=== PATIENT | female | born 1960 ===

== ENCOUNTER 2025-09-21 15:01 | Outpatient (CLI) | payer OTHER, SELFPAY ==
--- NOTE | 2025-09-21 15:15 | MR_ITS ---
WS: [id number] MRI CERVICAL SPINE NONCONTRAST HISTORY: Fall 3 months ago. Neck pain. RIGHT arm pain. COMPARISON: Radiograph 05/22/2025 Technique: Multiplanar, multisequence noncontrast imaging of the cervical spine. 2 mm retrolisthesis of C5. Disc space narrowing and desiccation at C5-6. No marrow edema is evident. Signal within the cervical cord is normal. Visualized posterior fossa is unremarkable. Craniocervical junction, C1 and C2 relationship, odontoid process and soft tissues are normal. C2-C3: Small central disc protrusion. No stenosis. C3-C4: Normal. C4-C5: Small central disc protrusion. No stenosis. C5-C6: Osteophytic ridging with disc bulging. The central broad-based disc protrusion is asymmetric to the LEFT. Moderate bilateral facet joint arthritis. Bilateral foraminal disc osteophyte complexes. Mild central stenosis. Moderate bilateral foraminal stenosis, LEFT greater than RIGHT. C6-C7: Diffuse disc bulging with osteophytic ridging. Moderate bilateral foraminal stenosis due to osteophytosis and facet disease. No significant central stenosis. C7-T1: Normal. Paraspinal soft tissue are normal. MR/MR cervical spin wo con* [id number] IMPRESSION: 1. No acute cervical spine fracture. 2. Degenerative disc disease and facet joint arthritis most significant at C5- 6 and C6-7. 3. Broad-based central disc protrusion asymmetric to the LEFT at C5-6. Moderat e facet arthritis. Mild central with moderate bilateral foraminal stenosis, LEF T greater than RIGHT due to disc osteophyte disease. 4. Moderate bilateral foraminal stenosis at C6-7 due to disc osteophyte diseas e and facet disease.
== END 2025-09-21 15:02 | disposition home or self-care (01) ==
LOC: RAD 15:03
PROVIDERS: Visit Provider Orthopaedic Surgery
DX: M48.02 Spinal stenosis, cervical region (principal); M50.322 Other cervical disc degeneration at C5-C6 level; M50.323 Other cervical disc degeneration at C6-C7 level; M47.812 Spondylosis without myelopathy or radiculopathy, cervical region; M25.78 Osteophyte, vertebrae
CPT/HCPCS: 72141

== ENCOUNTER → 2025-10-05 11:45 | Outpatient (BNVA) | payer OTHER, SELFPAY | PROVIDERS: Visit Provider Orthopaedic Surgery | DX: Z01.818 Encounter for other preprocedural examination (principal); M48.02 Spinal stenosis, cervical region | CPT/HCPCS: 36415; 80053; 81001; 85025 ==